=== PATIENT | male | born 1985 | race Caucasian/White ===

== ENCOUNTER 2016-11-11 03:32 | Emergency (ER) | payer OTHER ==
[2016-11-11 04:13] VITALS: BP 109/77; PULSE 75; TEMP 98.3; BMI 30.1
--- NOTE | 2016-11-11 04:41 | PDOC ---
[id number] No Limitations - History of Present Illness Initial Comments: 11/11/16 06:11 The patient is a 31-year-old male with a significant past medical history of genital herpes, and presents to the emergency department with concerns about STD exposure. The patient reports having unprotected sex and requests STD and HIV testing at this time. He denies testicular pain or dysuria, frequency, urgency and hematuria. The patient denies chest pain, shortness of breath, headache and dizziness. The patient denies fever, chills, nausea, vomit, diarrhea and constipation. Allergies: NKDA Social History: current everyday smoker (20 cigarettes a day) PCP: Dr. Mally Ceron <Kourtney Milton - Last Filed: 11/11/16 06:11> <Ange Gilliam - Last Filed: 11/18/16 02:49> - General Chief Complaint: Non EmpBld/Body Flud Exposure Stated Complaint: PAIN IN GENITALS Time Seen by Provider: 11/11/16 04:39 Past History <Kourtney Milton - Last Filed: 11/11/16 06:11> - Past Medical History Other medical history: Denies - Immunization History Td Vaccination: Yes Immunization Up to Date: Yes - Psycho/Social/Smoking Cessation Hx Anxiety: No Suicidal Ideation: No Smoking Status: No Smoking History: Current every day smoker Years of Tobacco Use: 0 Number of Cigarettes Smoked Daily: 20 Cigars Per Day: 0 Information on smoking cessation initiated: No Hx Alcohol Use: Yes Drug/Substance Use Hx: No <Ange Gilliam - Last Filed: 11/18/16 02:49> - Past Medical History Allergies/Adverse Reactions: Allergies Allergy/AdvReac Type Severity Reaction Status Date / Time No Known Allergies Allergy Verified 11/11/16 04:13 Home Medications: Ambulatory Orders NK [No Known Home Medication] 11/11/16 Review of Systems - Review of Systems Able to Perform ROS?: Yes Comments:: 11/11/16 06:12 CONSTITUTIONAL: Absent: fever, no chills, no fatigue EYES: Absent: visual changes ENT: Absent: ear pain, no sore throat CARDIOVASCULAR: Absent: chest pain, no palpitations RESPIRATORY: Absent: cough, no SOB GI: Absent: abdominal pain, no nausea, no vomiting, no constipation, no diarrhea GENITOURINARY: Absent: dysuria, no frequency, no hematuria MUSKULOSKELETAL: Absent: back pain, no arthralgia, no myalgia SKIN: Absent: rash NEURO: Absent: headache <Kourtney Milton - Last Filed: 11/11/16 06:11> *Physical Exam - Vital Signs Last Vital Signs Temp Pulse Resp BP Pulse Ox 98.3 F 75 18 109/77 98 11/11/16 04:07 11/11/16 04:07 11/11/16 04:07 11/11/16 04:07 11/11/16 04:07 - Physical Exam Comments: 11/11/16 06:12 GENERAL: Well-appearing, well-nourished. No apparent distress. HEENT: Normocephalic, atraumatic. PERRL, EOM intact. CARDIOVASCULAR: Normal S1, S2. Regular rate and rhythm. PULMONARY: Clear to auscultation bilaterally. ABDOMEN: Soft, non-distended, non-tender. EXTREMITIES: Normal ROM in all four extremities. No gross deformities. SKIN: Warm, dry. No rash NEUROLOGICAL: No focal neurological deficits. <Kourtney Milton - Last Filed: 11/11/16 06:11> - Vital Signs Last Vital Signs Temp Pulse Resp BP Pulse Ox 98.3 F 75 18 109/77 98 11/11/16 04:07 11/11/16 04:07 11/11/16 04:07 11/11/16 04:07 11/11/16 04:07 <Ange Gilliam - Last Filed: 11/18/16 02:49> Medical Decision Making - Medical Decision Making 11/11/16 06:58 Pt is HIV negative; GC/Chlamydia is pending. He has no drip, no scrotal pain, and no rash. He has a history of genital herpes, but no outbreak at this time. He will be discharged home. He was asked to follow with STD clinic. <Ange Gilliam - Last Filed: 11/18/16 02:49> *DC/Admit/Observation/Transfer - Attestations Scribe Attestion: 11/11/16 06:12 Documentation prepared by Kourtney Milton, acting as medical administrative specialist for Ange Gilliam MD. <Kourtney Milton - Last Filed: 11/11/16 06:11> - Discharge Dispostion Admit: No <Ange Gilliam - Last Filed: 11/18/16 02:49> Diagnosis at time of Disposition: Unprotected sex - Discharge Dispostion Disposition: HOME Condition at time of disposition: Stable - Referrals Referrals: Mally Ceron MD [Primary Care Provider] - - Patient Instructions Printed Discharge Instructions: Facts About Sexually Transmitted Infections, How to Detect and Treat STDs - Post Discharge Activity Work/School Note: Back to Work
[2016-11-11 06:51] LABS: HIV 1 & 2 AB NEGATIVE; HIV 1 AGp24 NEGATIVE
== END 2016-11-11 07:10 | disposition home or self-care (01) ==
LOC: JER 03:32
DX: Z77.21 Contact with and (suspected) exposure to potentially hazardous body fluids (principal); Z20.2 Contact with and (suspected) exposure to infections with a predominantly sexual mode of transmission; Z11.4 Encounter for screening for human immunodeficiency virus [HIV]; Z11.3 Encounter for screening for infections with a predominantly sexual mode of transmission
CPT/HCPCS: 36415; 87389; 87491; 87591; 99281-25

== ENCOUNTER 2017-05-27 00:58 | Emergency (ER) | payer OTHER ==
[2017-05-27 01:54] VITALS: BP 132/65; PULSE 85; TEMP 97.5; BMI 26.5
--- NOTE | 2017-05-27 01:55 | PDOC ---
History of Present Illness - General Stated Complaint: LUMP ON NECK Time Seen by Provider: 05/27/17 01:23 History Source: Patient Exam Limitations: No Limitations - History of Present Illness Initial Comments: 05/27/17 01:45 Patient is a 31-year-old male with no past medical history complaining of a swelling to his left neck has been increasing in size since one year. He states he had swelling there for more than 3 years which got infected a few years ago. At that time he went to [place], and I&D was done. States the swelling receded and seems as if it was resolved until about a year ago when it started to recollect. He is here tonight because he says he just wants it out, "it starting to bother me". He denies any fever, chills or any redness to the area, any difficulty swallowing. PMD: Din PSOCHX: ALL: NKDA GENERAL/CONSTITUTIONAL: [No fever or chills. No weakness. No weight change.] HEAD, EYES, EARS, NOSE AND THROAT: [No change in vision. No ear pain or discharge. No sore throat.] CARDIOVASCULAR: [No chest pain or shortness of breath.] RESPIRATORY: [No cough, wheezing, or hemoptysis.] GASTROINTESTINAL: [No nausea, vomiting, diarrhea or constipation. No rectal bleeding.] GENITOURINARY: [No dysuria, frequency, or change in urination.] MUSCULOSKELETAL: [No joint or muscle swelling or pain. No neck or back pain.] SKIN AND BREASTS: [No rash or easy bruising.] NEUROLOGIC: [No headache, vertigo, loss of consciousness, or loss of sensation.] PSYCHIATRIC: [No depression or anxiety.] ENDOCRINE: [No increased thirst. No abnormal weight change.] HEMATOLOGIC/LYMPHATIC: [No anemia, easy bleeding, or history of blood clots.] ALLERGIC/IMMUNOLOGIC: [No hives or skin allergy. No latex allergy.] GENERAL: [The patient is awake, alert, and fully oriented, in no acute distress. ] HEAD: [Normal with no signs of trauma.] EYES: [Pupils equal, round and reactive to light, extraocular movements intact, sclera anicteric, conjunctiva clear.] ENT: [Ears normal, nares patent, oropharynx clear without exudates. Moist mucous membranes.] NECK: [Normal range of motion, supple without lymphadenopathy, JVD, or masses.] LUNGS: [Breath sounds equal, clear to auscultation bilaterally. No wheezes, and no crackles.] HEART: [Regular rate and rhythm, normal S1 and S2 without murmur, rub.] ABDOMEN: [Soft, nontender, normoactive bowel sounds. No guarding, no rebound. No masses.] EXTREMITIES: [Normal range of motion, no edema. No clubbing or cyanosis. No cords, erythema, or tenderness.] NEUROLOGICAL: [Cranial nerves II through XII grossly intact. Normal speech, normal gait.] PSYCH: [Normal mood, normal affect.] SKIN: [Warm, Dry, normal turgor, no rashes or (+) small mobile lesion to the left neck adjacent to a large vessel. Past History - Past Medical History Allergies/Adverse Reactions: Allergies Allergy/AdvReac Type Severity Reaction Status Date / Time No Known Allergies Allergy Verified 05/27/17 01:54 Home Medications: Ambulatory Orders NK [No Known Home Medication] 11/11/16 - Immunization History Td Vaccination: Yes Immunization Up to Date: Yes - Psycho/Social/Smoking Cessation Hx Anxiety: No Suicidal Ideation: No Smoking Status: No Smoking History: Current every day smoker Years of Tobacco Use: 0 Number of Cigarettes Smoked Daily: 20 Cigars Per Day: 0 Hx Alcohol Use: Yes Drug/Substance Use Hx: No Medical Decision Making - Medical Decision Making 05/27/17 01:55 Patient is a 31-year-old male with no past medical history complaining of a swelling to his left neck has been increasing in size since one year. Patient advised that he will have to follow up with surgery for further treatment. I discussed the physical exam findings, ancillary test results and final diagnoses with the patient. I answered all of the patient's questions. The patient was satisfied with the care received and felt comfortable with the discharge plan and treatment plan. The Patient agrees to follow up with the primary care physician within 24-72 hours. *DC/Admit/Observation/Transfer Diagnosis at time of Disposition: Cyst of neck - Discharge Dispostion Disposition: HOME Condition at time of disposition: Stable - Referrals Referrals: Mally Ceron MD [Primary Care Provider] - Franco Martinez MD [Staff Physician] - - Patient Instructions Printed Discharge Instructions: DI for Epidermal Cyst Additional Instructions: Your Discharge Instructions: You must call primary care physician within 24 hours to arrange follow-up. Return to the Emergency Department with any new, persistent or worsening symptoms, for fever, chills, SOB, dizziness or any other concerning changes that may occur.
== END 2017-05-27 02:06 | disposition home or self-care (01) ==
LOC: JER 00:58
DX: L72.8 Other follicular cysts of the skin and subcutaneous tissue (principal)
CPT/HCPCS: 99281-25

== ENCOUNTER 2017-06-22 15:43 | Emergency (ER) | payer OTHER ==
[2017-06-22 15:47] VITALS: BP 117/75; PULSE 92; TEMP 98.2; BMI 30.1
--- NOTE | 2017-06-22 16:30 | PDOC ---
Suture Removal/Wound Check HPI - History of Present Illness Chief Complaint: Suture/Staple Removal (other) Stated Complaint: SUTURE REMOVAL Time Seen by Provider: 06/22/17 15:56 Exam Limitations: Yes: No Limitations Treated at: Other ED (I&D of abscess done outpatient by surgeon) - Previous ED Treatment Type of procedure performed on last visit: Yes: I&D of Abscess Antibiotics Prescribed: Yes - Onset of Previous Treatment Comment:: 06/22/17 16:27 31 yo M presents to fast track with suture removal s/p I&D performed by outpatient surgery "06/08 or 06/09" per patient. Patient states he was supposed to return for an appointment two days ago to surgery for suture removal but he missed his appointment. He states he called the surgery center and was told he would have to wait at least a week for an appointment "or go to the ER." 3 stitches removed to left lateral neck. Minimal bleeding. Site cleansed with betadine solution after suture removal. Advised patient to monitor wound for any signs of infection and of symptoms for return to ER; patient verbalized understanding and agrees to plan. Past History - Past Medical History Allergies/Adverse Reactions: Allergies Allergy/AdvReac Type Severity Reaction Status Date / Time No Known Allergies Allergy Verified 06/22/17 15:47 Home Medications: Ambulatory Orders NK [No Known Home Medication] 11/11/16 Other medical history: denies - Immunization History Td Vaccination: Yes Immunization Up to Date: Yes - Suicide/Smoking/Psychosocial Hx Smoking Status: No Smoking History: Current every day smoker Years of Tobacco Use: 0 Number of Cigarettes Smoked Daily: 20 Cigars Per Day: 0 Information on smoking cessation initiated: No Hx Alcohol Use: No Drug/Substance Use Hx: No Substance Use Type: None *DC/Admit/Observation/Transfer Diagnosis at time of Disposition: Visit for suture removal - Discharge Dispostion Disposition: HOME Condition at time of disposition: Stable Admit: No - Referrals Referrals: Chema Harp [Primary Care Provider] - - Patient Instructions Printed Discharge Instructions: DI for Suture Removal Additional Instructions: You must follow up with your surgeon within the next 1-2 weeks for continued monitoring. As discussed, please monitor the surgical site for any signs of infection. If you develop any redness, swelling, warmth, or increased pain to the site, or you develop any fever, vomiting, diarrhea, or chills, or any new or worsening symptoms, please return to the ER.
== END 2017-06-22 16:41 | disposition home or self-care (01) ==
LOC: JERFT 15:43
DX: Z48.02 Encounter for removal of sutures (principal)
CPT/HCPCS: 99281-25

== ENCOUNTER 2022-03-03 13:30 | Emergency (ER) | payer OTHER ==
[2022-03-03 13:53] VITALS: BP 110/67; PULSE 74; TEMP 98.2; BMI 35.5
[2022-03-03] MEDS ORDERED: IBUPROFEN 600 MG TABLET (FP) PO ONE ×2 (15:25→16:32)
== END 2022-03-03 17:18 | disposition home or self-care (01) ==
LOC: JERFT 13:30 → JER 13:30 → JERFT 17:18
DX: M54.50 Low back pain, unspecified (principal); V49.40XA Driver injured in collision with unspecified motor vehicles in traffic accident, initial encounter
CPT/HCPCS: 72100-TC-FY; 99283-25

== ENCOUNTER 2023-10-27 07:24 | Emergency (ER) | payer OTHER ==
[2023-10-27 07:37] VITALS: BP 107/71; PULSE 100; RESP 18; TEMP 97; BMI 33.0
[2023-10-27] MEDS ORDERED: IBUPROFEN 600 MG TABLET (FP) PO ONE (08:13)
[2023-10-27] MEDS ORDERED: DIPHTH,PERTUSS(ACELL),TET 0.5 ML DISP.SYRIN IM ONE (08:14)
[2023-10-27] MEDS: IBUPROFEN 600 MG TABLET (FP) PO ONE (08:21)
[2023-10-27] MEDS: DIPHTH,PERTUSS(ACELL),TET 0.5 ML DISP.SYRIN IM ONE (08:22)
== END 2023-10-27 09:36 | disposition home or self-care (01) ==
LOC: JER 07:24
DX: M25.562 Pain in left knee (principal); V23.49XA Other motorcycle driver injured in collision with car, pick-up truck or van in traffic accident, initial encounter; Y92.410 Unspecified street and highway as the place of occurrence of the external cause
CPT/HCPCS: 73562-TC-LT-FY; 99283-25